=== PATIENT | male | born 1990 | race Hispanic/Latino ===

== ENCOUNTER 2023-05-15 08:47 | Emergency (ER) | payer SELFPAY ==
[2023-05-15] MEDS ORDERED: HYDROcodone/Acetaminophen 5/325 mg Tablet ONE (09:21)
== END 2023-05-15 09:54 | disposition home or self-care (01) ==
LOC: ERS 08:47
DX: M25.521 Pain in right elbow (principal); F17.210 Nicotine dependence, cigarettes, uncomplicated